=== PATIENT | female | born 1985 | race American Indian/Alaskan Native ===

== ENCOUNTER 2019-01-27 14:51 | Outpatient (CLI) | payer OTHER | END 2019-01-27 15:25 | disposition home or self-care (01) | LOC: NST 14:51 | DX: Z34.83 Encounter for supervision of other normal pregnancy, third trimester (principal) ==

== ENCOUNTER 2019-01-27 16:41 | Inpatient (IN) | payer OTHER ==
[~2019-01-27] VITALS: Ht 167.6 cm; Wt 71.7 kg
[2019-01-30] MEDS ORDERED: NIFEDIPINE ER30 MG PO (09:34)
== END 2019-01-30 09:48 | disposition home or self-care (01) | DRG 833 ==
LOC: LDR 16:41 → OB/GYN 16:41
PROVIDERS: ADMIT Obstetrics & Gynecology Maternal & Fetal Medicine
PROC: 4A1HXCZ Monitoring of Products of Conception, Cardiac Rate, External Approach (ICD-10-PCS; principal; 2019-01-27)
DX: O60.03 Preterm labor without delivery, third trimester (principal)

== ENCOUNTER 2019-02-23 10:15 | Outpatient (CLI) | payer OTHER ==
[~2019-02-23 10:15] MED LIST: NIFEDIPINE ER30 MG PO
== END 2019-02-23 11:00 | disposition home or self-care (01) ==
LOC: NST 10:15
DX: Z34.83 Encounter for supervision of other normal pregnancy, third trimester (principal)

== ENCOUNTER 2019-03-02 04:55 | Inpatient (IN) | payer OTHER ==
[~2019-03-02] VITALS: Ht 167.6 cm; Wt 72.6 kg
[2019-03-02] MEDS ORDERED: PRENATAL + DHA1 EAC1 PO (06:16)
== END 2019-03-04 14:52 | disposition home or self-care (01) | DRG 807 ==
LOC: LDR 04:55 → SURG-SUITE 04:55
PROVIDERS: ADMIT Obstetrics & Gynecology Maternal & Fetal Medicine
PROC: 10E0XZZ Delivery of Products of Conception, External Approach (ICD-10-PCS; principal; 2019-03-02)
PROC: 0KQM0ZZ Repair Perineum Muscle, Open Approach (ICD-10-PCS; 2019-03-02)
PROC: 3E033VJ Introduction of Other Hormone into Peripheral Vein, Percutaneous Approach (ICD-10-PCS; 2019-03-02)
PROC: 4A1HXCZ Monitoring of Products of Conception, Cardiac Rate, External Approach (ICD-10-PCS; 2019-03-02)
DX: O70.1 Second degree perineal laceration during delivery (principal); Z37.0 Single live birth; Z3A.36 36 weeks gestation of pregnancy